=== PATIENT | male | born 1950 | race Caucasian/White ===

== ENCOUNTER 2024-05-07 17:30 | Inpatient (IN) | payer OTHER ==
[~2024-05-07] VITALS: Ht 177.8 cm; Wt 113.2 kg
[2024-05-07] VITALS (8 sets, daily range): BP systolic 106–134; BP diastolic 81–102
[~2024-05-07 17:30] MED LIST: Ketamine HCl 100 MG / ML 5ML Vial IV ONE; Phenylephrine HCl 100 MCG/ML-NS 10MLSYR (1MG/10ML) IV ONE; Rocuronium Bromide 10 MG/ML 5ML Injection IV ONE
[2024-05-07] MEDS ORDERED: FentaNYL Citrate 50 MCG/ML 2 ML Injection IV ONE (17:40)
[2024-05-07] MEDS ORDERED: propofoL 100 ML IV SCH (17:40)
[2024-05-07] MEDS ORDERED: NS 1,000 ML IV ONE (17:56)
[2024-05-07] MEDS ORDERED: Lactated Ringer's 1,000 ML IV SCH (18:00)
[2024-05-07 18:02] LABS: BASOPHILS ABSOLUTE AUTO 0.15 K/mm3 (0.00-0.23); BASOPHILS PERCENT AUTO 1 % (0-2); EOSINOPHILS ABSOLUTE AUTO 0.24 K/mm3 (0.00-0.68); EOSINOPHILS PERCENT AUTO 1 % (0-6); Hematocrit 42.2 % (37.0-53.0); IMMATURE GRAN ABSOLUTE AUTO 1.82 K/mm3 (0.00-0.10); IMMATURE GRAN PERCENT AUTO 6 % (0-1); LYMPHOCYTES ABSOLUTE AUTO 3.25 K/mm3 (0.84-5.20); LYMPHOCYTES PERCENT AUTO 12 % (21-46); MONOCYTES ABSOLUTE AUTO 0.43 K/mm3 (0.16-1.47); MONOCYTES PERCENT AUTO 2 % (4-13); Mean Corpuscular HGB 30.6 pg (26.0-34.0); Mean Corpuscular HGB Conc 33.2 g/dL (31.5-36.5); Mean Corpuscular Volume 92 fL (80-100); Mean Platelet Volume 10.7 fL (9.1-12.4); NEUTROPHILS ABSOLUTE AUTO 22.48 K/mm3 (1.96-9.15); NEUTROPHILS PERCENT AUTO 79 % (41-73); Platelet Count 209 K/mm3 (150-400); RDW Coefficient Variation 13.2 % (11.7-14.2); RDW Standard Deviation 45.1 fL (35.1-46.3); Red Blood Cell Count 4.58 M/mm3 (4.30-5.90); White Blood Cell Count 28.37 K/mm3 (4.00-11.30)
[2024-05-07 18:05] LABS: Calcium, Ionized (POC) 0.98 mmol/L (1.10-1.46); Chloride (POC) 101 mmol/L (98-108); Creatinine (POC) 1.4 mg/dL (0.8-1.3); Glucose (ISTAT POC) 246 mg/dL (70-99); Hemoglobin (POC) 14.6 g/dL (13.5-17.5); Potassium (POC) 3.4 mmol/L (3.5-5.5); Sodium (POC) 139 mmol/L (135-148); Total CO2 (POC) 23 mmol/L (21-32)
[2024-05-07 18:10] LABS: Albumin, Blood 3.6 g/dL (3.4-5.0); Albumin/Globulin Ratio 0.9 (0.8-1.8); Bilirubin, Total 1.1 mg/dL (0.1-1.0); Bun/Creatinine Ratio 13.1 (12.0-20.0); Calcium, Blood 8.2 mg/dL (8.5-10.1); Creatinine, Blood 1.3 mg/dL (0.60-1.20); Globulin, Blood 3.8 g/dL (2.2-4.0); Potassium, Blood 3.9 mmol/L (3.5-5.5); Total Protein, Blood 7.4 g/dL (6.4-8.2)
[2024-05-07] MEDS ORDERED: CALCIUM GLUC IN NACL, ISO-OSM 100 ML IV ONE (18:10)
[2024-05-07 18:11] LABS: International Normalized Ratio 1.24; Prothrombin Time Results 13.1 Sec (9.7-11.5)
--- NOTE | 2024-05-07 18:35 | NUR ---
"Spiritual Care Family Support | ED26 Pt. arrived in an ambulance and is intubated. When this steel post installer arrive on scene I was driected to the ED lounge where the Pts. spouse was checking the Pt. in. After establishing contact the spouse verbalized her preference to be alone as she was contacting family members. When the consult room became available this steel post installer brought the spouse to the ED consult room where Dr. Bush updated the spouse on the Pts. condition. Afterward escorted the spouse to the Pts. room where she was at bedside. Before the Pt. was taken to imaging the spouse returned to the waiting area to receive her family when they arrive. Spouse verbalized gratitude for the spiritual care support."
[2024-05-07 19:01] LABS: Base Excess Venous -0.5 mmol/L; Bicarbonate Venous 23.5 mmol/L (24.0-30.0); PCO2 Venous 47.3 mmHg (38-42); pH Blood Venous 7.34 (7.34-7.37)
[2024-05-07] MEDS ORDERED: Dose Adjust by Pharmacy XX STA (19:48)
[2024-05-07] MEDS ORDERED: Heparin Sodium 5000 Units/ML 1ML MDV IV ONE (19:50)
[2024-05-07] MEDS ORDERED: Heparin Sodium,Porcine/0.5 NS 500 ML IV SCH (20:00)
[2024-05-07] MEDS ORDERED: Cetylpyridinium Chloride 1 EA MISC MT SCH (20:05)
[2024-05-07] MEDS ORDERED: Albuterol 2.5 MG/3 ML VIAL INH PRN (20:05)
[2024-05-07] MEDS ORDERED: NS 1,000 ML IV SCH (20:05)
[2024-05-07] MEDS ORDERED: Aspirin 81 MG Chew PT ONE (20:05)
[2024-05-07] MEDS ORDERED: Metoprolol Tartrate 1 MG/ML 5 ML VIAL IV PRN (20:10)
[2024-05-07] MEDS ORDERED: FentaNYL Citrate 50 MCG/ML 2 ML Injection IV PRN (20:10)
[2024-05-07] MEDS ORDERED: Phenylephrine HCl 20 MG in NS 250 ML IV SCH (20:20)
[2024-05-07 20:57] LABS: Source, Urine Foley catheter
[2024-05-07 21:02] LABS: Bilirubin, Urine Neg (Neg); Blood, Urine 2+ (Neg); Color, Urine Yellow (P-Yellow); Glucose Qualitative, Urine Neg (Neg); Ketones, Urine Neg (Neg); Leukocyte Esterase, Urine Neg (Neg); Nitrite, Urine Neg (Neg); Protein, Urine 2+ (Neg); Urobilinogen, Urine NORM (Normal)
[2024-05-07 21:09] LABS: Appearance, Urine Clear (Clear)
[2024-05-07 21:17] LABS: Bacteria Few /hpf; Red Blood Cells, Urine 0-2 /hpf (0-2); Renal Epithelial Few /hpf (0-Rare); Squamous Epithelial Cells Not Seen /hpf (Few); White Blood Cells, Urine 0-2 /hpf (0-5)
[2024-05-07 21:18] LABS: Transitional Epithelial Cells Rare /hpf (0-Rare)
[2024-05-07 23:10] LABS: PCO2 Venous 47.1 mmHg (38-42); pH Blood Venous 7.36 (7.34-7.37)
[2024-05-07 23:11] LABS: Base Excess Venous 0.8 mmol/L; Bicarbonate Venous 24.5 mmol/L (24.0-30.0)
[2024-05-08] VITALS (57 sets, daily range): BP systolic 101–179; BP diastolic 63–120
[2024-05-08] MEDS ORDERED: Hydrogen Peroxide 1.5 % Solution MT SCH
[2024-05-08] MEDS ORDERED: Metoprolol Tartrate 25 MG Tab PO ONE (01:00)
[2024-05-08] MEDS ORDERED: Aspirin 81 MG Chew PT ONE (01:00)
[2024-05-08 03:18] LABS: BASOPHILS ABSOLUTE AUTO 0.03 K/mm3 (0.00-0.23); BASOPHILS PERCENT AUTO 0 % (0-2); EOSINOPHILS ABSOLUTE AUTO 0.01 K/mm3 (0.00-0.68); EOSINOPHILS PERCENT AUTO 0 % (0-6); Hematocrit 43.2 % (37.0-53.0); Hemoglobin 14.8 g/dL (13.5-17.5); IMMATURE GRAN ABSOLUTE AUTO 0.14 K/mm3 (0.00-0.10); IMMATURE GRAN PERCENT AUTO 1 % (0-1); LYMPHOCYTES ABSOLUTE AUTO 0.57 K/mm3 (0.84-5.20); LYMPHOCYTES PERCENT AUTO 3 % (21-46); MONOCYTES ABSOLUTE AUTO 0.63 K/mm3 (0.16-1.47); MONOCYTES PERCENT AUTO 4 % (4-13); Mean Corpuscular HGB 30.8 pg (26.0-34.0); Mean Corpuscular HGB Conc 34.3 g/dL (31.5-36.5); Mean Corpuscular Volume 90 fL (80-100); Mean Platelet Volume 10.6 fL (9.1-12.4); NEUTROPHILS ABSOLUTE AUTO 16.35 K/mm3 (1.96-9.15); NEUTROPHILS PERCENT AUTO 92 % (41-73); Platelet Count 184 K/mm3 (150-400); RDW Coefficient Variation 13.4 % (11.7-14.2); RDW Standard Deviation 44.2 fL (35.1-46.3); Red Blood Cell Count 4.81 M/mm3 (4.30-5.90); White Blood Cell Count 17.73 K/mm3 (4.00-11.30)
[2024-05-08 03:22] LABS: Base Excess Venous 2.1 mmol/L; Bicarbonate Venous 25.9 mmol/L (24.0-30.0); PCO2 Venous 41.3 mmHg (38-42); pH Blood Venous 7.41 (7.34-7.37)
[2024-05-08 03:49] LABS: Albumin, Blood 3.6 g/dL (3.4-5.0); Bilirubin, Total 1.2 mg/dL (0.1-1.0); Bun/Creatinine Ratio 17.2 (12.0-20.0); Calcium, Blood 8.4 mg/dL (8.5-10.1); Creatinine, Blood 0.99 mg/dL (0.60-1.20); Globulin, Blood 3.5 g/dL (2.2-4.0); Total Protein, Blood 7.1 g/dL (6.4-8.2)
--- NOTE | 2024-05-08 04:55 | NUR ---
HANNAH ARRIVED TO ICU ROOM 4. PATIENT WAS INTUBATED ON ARRIVAL. VENT SETTINGS TV 450, PEEP 5, RATE 18. ETT TUBE 25 @ TEETH. LUNGS CLEAR. CARDIAC RN CONNECTED TO PATIENT HR IN THE 130-140S, IN A-FIB. BP 120-130S. NEURO STATUS PATIEN IS NOT RESPONDING TO ANY PAIN. COUGH AND GAG INTACT WITH SUCTIONING. PATIENT HAS ACTIVE BOWEL SOUNDS. ADMISSION HISTORY WAS PROVIDED BY AT BEDSIDE D/T PATIENT BEING INTUBATED AND SEDATED. PROP STARTED AT 10.
[2024-05-08] MEDS ORDERED: Acetaminophen 160MG / 5ML 10.15 UDC PT PRN (06:10)
--- NOTE | 2024-05-08 06:33 | NUR ---
PATIENT ADMITTED OVER NIGHT FOR POST ARREST. PATIENT DOES NOT RESPOND TO PAIN, COUGH AND GAG PRESENT. PATIENT TEMP RISING OVER NIGHT PLACED ON COOLING DEVICE. HR HAS BEEN IN THE 90S SINCE A DOSE OF IV METOPROLOL AND PO DOSE 25MG. SBP HAS BEEN 130-140S. PATIENT INTUBATED: PEEP 5, RATE 18, FI02 55. ETT @ 25 TEETH. NO BM. UO HAS BEEN GOOD OVERNIGHT. PROP @ 20 FOR SEDATION AND OVER BREATHING VENT. HEPARIN GTT. AMIO GTT
[2024-05-08] MEDS ORDERED: Pantoprazole Sodium 40 MG Injection IV SCH (09:00)
[2024-05-08] MEDS ORDERED: Irbesartan 150 MG Tab PT SCH (09:00)
[2024-05-08] MEDS ORDERED: Carvedilol 6.25 MG Tab PT SCH (09:00)
[2024-05-08] MEDS ORDERED: Aspirin 81 MG Chew PT SCH (09:00)
[2024-05-08] MEDS ORDERED: Dose Adjust by Pharmacy XX STA (09:55)
[2024-05-08] MEDS ORDERED: Furosemide 20 MG Tab PO SCH (10:30)
--- NOTE | 2024-05-08 11:11 | NUR ---
Spiritual Care | "Things We Care to Know*" Pt. is intubated and not responsive. Spouse is at bedside and welcomes my visit. Pts. son and diaghter are also present. Facilitated an update of the families understanding of the Pts. condition. Listen with interest, and empathy. Recommend doing a "Things we Care to Know" geoscience professor for the Pt., and spouse provided me with info. Family verbalized gratitude for the spiritual care visit and support. *"Things We Care to Know" is a program of the Spiritual Care Dept. designed to personalize the Pt./Staff relationship, particularly for Pt. who cannot speak for themselves.
--- NOTE | 2024-05-08 15:01 | NUR ---
SUMMARY PT INTUBATED AND SEDATED WITH PROPOFOL. WHEN SEDATION IS OFF, WORK OF BREATHING INCREASES AND BECOMES HYPERTENSIVE. PLACED BACK ON SEDATION. PT WILL WITHDRAW FROM NOXIOUS STIMULUS, HAS GAG AND COUGH. COOLING BLANKET ON TO KEEP PT NORMOTHERMIC, ALSO GAVE TYLENOL THIS AM. UNABLE TO GET EEG D/T AVAILABILITY OF NEURO SPECIALIST. PT BEING TRANSFERED TO [facility]. PT [facility]ING [facility]. HEPARIN GTT, AMIODORONE GTT AND PROPOFOL ACCOMPANIES PT. REPORT GIVEN TO KIRSTEN ECHAVARRIA. NO SIGN OF DISTRESS PT LEAVES WITH EMS.
[2024-05-08] MEDS ORDERED: Atorvastatin 40 MG Tab PT SCH (21:00)
== END 2024-05-08 14:55 | disposition short-term general hospital (02) | DRG 308 ==
LOC: ER 17:30 → ICUE 20:16
PROVIDERS: Emergency Medicine; Nurse Practitioner Acute Care; ADMIT Student in an Organized Health Care Education/Training Program
PROC: 5A12012 Performance of Cardiac Output, Single, Manual (ICD-10-PCS; principal; 2024-05-07)
PROC: 5A1935Z Respiratory Ventilation, Less than 24 Consecutive Hours (ICD-10-PCS; 2024-05-07)
PROC: 0BH17EZ Insertion of Endotracheal Airway into Trachea, Via Natural or Artificial Opening (ICD-10-PCS; 2024-05-07)
PROC: 0DH67UZ Insertion of Feeding Device into Stomach, Via Natural or Artificial Opening (ICD-10-PCS; 2024-05-07)
DX: I49.01 Ventricular fibrillation (principal); J96.01 Acute respiratory failure with hypoxia; G93.1 Anoxic brain damage, not elsewhere classified; I24.9 Acute ischemic heart disease, unspecified; M96.A3 Multiple fractures of ribs associated with chest compression and cardiopulmonary resuscitation; I50.20 Unspecified systolic (congestive) heart failure; F11.20 Opioid dependence, uncomplicated; R65.10 Systemic inflammatory response syndrome (SIRS) of non-infectious origin without acute organ dysfunction; I46.2 Cardiac arrest due to underlying cardiac condition; I48.91 Unspecified atrial fibrillation; J44.9 Chronic obstructive pulmonary disease, unspecified; E83.51 Hypocalcemia; G89.4 Chronic pain syndrome; F32.A Depression, unspecified; I11.0 Hypertensive heart disease with heart failure
CPT/HCPCS: 31500; 51702; 70450; 71045; 71260; 72125; 80047; 80053; 81001; 82803; 83735; 83880; 84484; 85014; 85025; 85520; 85610; 85730; 93005; 93010; 94002; 94003; 96361-59; 96374-59; 96375-59; 99291-25; A9270; C1751; C8929; C9113; J0282; J1644; J2371; J2704; J7030; J7060; Q9957; Q9967